=== PATIENT | male | born 1950 | race Caucasian/White ===

== ENCOUNTER 2016-12-22 10:18 | Observation (INO) | payer OTHER ==
--- NOTE | 2016-12-21 18:25 | GHP ---
[f rep st] PREOP HISTORY AND PHYSICAL ADMISSION DIAGNOSIS: Urinary bladder outlet obstruction with nocturia and incomplete emptying. HISTORY: He has had a previous photovaporization of the prostate in [place] in 2010. He presented to the office with an IPSS score of 19 and a bother score of 3. Postvoid residual of 347. He also had hematuria in the past and evaluation revealed no suggestion of malignancy. He had a CAT scan that showed some small sclerotic lesions of his skeleton. He has had a normal PSA in the past. He has also had radiation, radiated some 30 years ago. He has had a history of diabetes. On cystoscopy he has had regrowth of tissue causing a ball valve effect causing his urinary obstruction. He has a large capacity bladder with high detrusor voiding pressures and possible obstruction. He had a truss that shows 32 cc of prostate and anterior BPH noted. REASON FOR ADMISSION: At the present time, he is admitted for transurethral resection of the prostate. PAST MEDICAL HISTORY: He has had BPH, diabetes, heart disease and testicular atrophy. SURGICAL HISTORY: Hip, knee and spleen. MEDICATIONS: Finasteride, Fluad, gabapentin, Lantus, levothyroxine, metformin, pantoprazole, rosuvastatin, simvastatin. ALLERGIES: No known drug allergies. FAMILY HISTORY: Positive for diabetes. SOCIAL HISTORY: Mild alcohol consumption. Nonsmoker. REVIEW OF SYSTEMS: Negative cardiac, respiratory, GI. Endocrine is positive for diabetes. PHYSICAL EXAM: VITAL SIGNS: Stable. CHEST: Clear. HEART: Regular rate and rhythm. ABDOMEN: Normal, no organomegaly, rebound or guarding. EXTREMITIES: Lower extremities are normal. RECTAL: Exam on prior assessments have been compatible with BPH. : At the present time, he has small testes related to radiation and borderline low testosterone. He is considering androgen replacement therapy in the future. He has also had bladder outlet obstruction. He is presently admitted for a TURP. PLAN: The indication, complications, options were discussed. He is admitted for the above procedure. Copy requested to: Dr. Braydon Arriaga #: [id number]
[~2016-12-22 10:18] MED LIST: D5W LR 1,000 ML IV ONE; LIDOCAINE 2% JELLY 20 ML (UROJECT) ONE; ceFAZolin 2 GM/DEXTROSE 100 ML IV ONE
[2016-12-22] MEDS ORDERED: LIDOCAINE 1% 2 ML INJ ID PRN (10:44)
[2016-12-22] MEDS ORDERED: LR 1,000 ML IV ONE (10:44)
[2016-12-22] MEDS ORDERED: CEFAZOLIN 2 GM/DEXTROSE/100 ML BAG IV ONE (10:59)
--- NOTE | 2016-12-22 12:04 | PDHPUP ---
History & Physical Update H&P update statement: This history and physical update is based on an assessment of the patient which was completed after admission or registration (within 24 hours), but prior to the surgery/procedure. H&P update: H&P reviewed & patient examined, no change in patient's condition since H&P completed
[2016-12-22] MEDS ORDERED: ceFAZolin 2 GM/DEXTROSE 100 ML IV ONE (12:07)
[2016-12-22] MEDS ORDERED: LIDOCAINE 2% JELLY 20 ML (UROJECT) ONE (12:13)
--- NOTE | 2016-12-22 12:15 | PDANEPAE ---
ANE History of Present Illness BLPH, urinary obstruction ANE Past Medical History - Cardiovascular History Hx Hypertension: No Hx Arrhythmias: No Hx Chest Pain: No Hx Coronary Artery / Peripheral Vascular Disease: No Hx CHF / Valvular Disease: No Hx Palpitations: No - Pulmonary History Hx COPD: No Hx Asthma/Reactive Airway Disease: No Hx Recent Upper Respiratory Infection: No Hx Oxygen in Use at Home: No - Neurologic History Hx Cerebrovascular Accident: No Hx Seizures: No Hx Dementia: No - Endocrine History Hx Diabetes: Yes - Renal History Hx Renal Disorders: No - Liver History Hx Hepatic Disorders: No - Neurological & Psychiatric Hx Hx Neurological and Psychiatric Disorders: No - Cancer History Hx Cancer: Yes - Congenital Disorder History Hx Congenital Disorders: No - GI History Hx Gastrointestinal Disorders: Yes - Chronic Pain History Chronic Pain: Yes ANE Review of Systems - Exercise capacity METS (RN): 4 METS - Systems Cardiac: Reports: other (Able to do 4 METs) ANE Patient History - Allergies Allergies/Adverse Reactions: No Known Allergies Allergy (Verified 04/16/16 15:56) - Home Medications Home Medications: Levothyroxine [Synthroid 125 mcg (*)] 125 mcg PO DAILY06 02/23/15 [Last Taken ] Repaglinide [Prandin] 1 mg PO BID 02/23/15 [Last Taken 12/21/16] Rosuvastatin Calcium [Crestor 20mg (*)] 10 mg PO DAILY@1800 02/23/15 [Last Taken 12/21/16] metFORMIN HCL [Glucophage 500 mg (*)] 1,000 mg PO BIDMEAL 02/23/15 [Last Taken 12/21/16] Insulin Glargine [Lantus 100 UNITS/ML (*)] 15 units SC HS 08/18/15 [Last Taken 12/20/16] Aspirin EC [Aspirin EC 81 mg (*)] 81 mg PO DAILY 04/16/16 [Last Taken 12/14/16] Pantoprazole Sodium [Protonix 40mg (*)] 40 mg PO DAILY 04/16/16 [Last Taken ] - NPO status NPO Since - Liquids (Date): 12/21/16 NPO Since - Liquids (Time): 23:00 NPO Since - Solids (Date): 12/21/16 NPO Since - Solids (Time): 21:00 - Smoking Hx Smoking Status: Never smoked - Family Anes Hx Family Hx Anesthesia Complications: none ANE Labs/Vital Signs - Vital Signs Blood Pressure: 156/84 Heart Rate: 74 Respiratory Rate: 16 O2 Sat (%): 98 Height: 195.58 cm Weight: 90.718 kg
[2016-12-22] MEDS ORDERED: PROPOFOL/EMULSION 500 MG/50 ML BOTTLE IV ONE (12:22)
[2016-12-22] MEDS ORDERED: fentaNYL 100 MCG/2 ML INJ ONE (12:22)
[2016-12-22] MEDS ORDERED: DEXAMETHASONE 4 MG/ML VIAL IVP PRN (13:13)
[2016-12-22] MEDS ORDERED: METOCLOPRAMIDE 10 MG/2 ML VIAL IVP PRN (13:13)
[2016-12-22] MEDS ORDERED: MEPERIDINE 25 MG/ML SYR IVP PRN (13:13)
[2016-12-22] MEDS ORDERED: LABETALOL HCL 5 MG/ML 20 ML MDV IVP PRN (13:13)
[2016-12-22] MEDS ORDERED: fentaNYL 100 MCG/2 ML INJ IVP PRN (13:13)
[2016-12-22] MEDS ORDERED: HYDROCODONE/APAP 5/325 TAB PO PRN (13:13)
[2016-12-22] MEDS ORDERED: ENALAPRILAT DIHYDRATE 1.25 MG/ML VIAL IVP PRN (13:13)
[2016-12-22] MEDS ORDERED: ONDANSETRON 4 MG/2 ML VIAL IVP PRN (13:13)
[2016-12-22] MEDS ORDERED: PROMETHAZINE HCL 25 MG/ML INJ IVP PRN (13:13)
[2016-12-22] MEDS ORDERED: LR 500 ML IV PRN (13:13)
[2016-12-22] MEDS ORDERED: NALOXONE HCL 0.4 MG/ML INJ IVP PRN (13:13)
[2016-12-22] MEDS ORDERED: LIDOCAINE 2% 5 ML SDV ONE (13:47)
[2016-12-22 14:36] VITALS: RESP 16
--- NOTE | 2016-12-22 15:48 | GOP ---
[f rep st] OPERATIVE REPORT DATE OF OPERATION: 12/22/2016 SURGEON: Jeronimo Savage MD ANESTHESIA: Narinder Sifuentes MD, provided general anesthesia. PREOPERATIVE DIAGNOSIS: BPH with urinary obstruction. POSTOPERATIVE DIAGNOSIS: BPH with urinary obstruction. PROCEDURE PERFORMED: Transurethral resection of the prostate. FINDINGS: SPECIMENS: Sent to Pathology. The bladder after being Elliked, free of all chips and clots, visualized. No residual chips or clot s. Ureteral orifices normal and preserved. External sphincter approximated at the midline symmetri shannon. Verumontanum preserved. A 22 three-way catheter passed over a Mandarin guide. 60 cc balloo n inflated, traction placed, and irrigated clear. He will be admitted for postoperative care. DESCRIPTION OF PROCEDURE: Underwent general anesthesia. After appropriate prep and drape in normal sterile fashion in dorsal lithotomy position, a time-out noted. Urethra was normal. Prostate obst ructing bladder had +3 to 4 trabeculation, no tumors or stones. The TUR was begun, taking down the intravesical lobe of the prostate, the right lateral lobe and right portion of the posterior lobe. Hemostasis provided with cauterization. Left lateral lobe and left portion of the posterior lobe we re resected. At the end of the procedure, a button was used to provide hemostasis. /[id number]/MODL
--- NOTE | 2016-12-22 16:12 | POSTANESTH ---
Post Anesthetic Evaluation Cardiovascular Status: Normal, Stable Respiratory Status: Normal, Stable, Similar to Pre-op Cond. Level of Consciousness/Mental Status: Can Participate in Eval, Alert and Oriented Pain Control: Adequate, Prn Tx Ordered Nausea/Vomiting Control: Adequate, Prn Tx Ordered Complications Possibly Related to Anesthesia: None Noted
[2016-12-22] MEDS: metFORMIN HCL 500 MG TAB PO SCH (17:42)
[2016-12-22] MEDS: REPAGLINIDE 1 MG TAB PO SCH (17:42)
[2016-12-22] MEDS ORDERED: ROSUVASTATIN CALCIUM 20 MG TAB PO SCH (18:00)
[2016-12-22] MEDS ORDERED: INSULIN GLARGINE 100 UNITS/ML SYRINGE SC SCH (21:00)
[2016-12-23] MEDS ORDERED: LEVOTHYROXINE 125 MCG TAB PO SCH (06:00)
[2016-12-23] MEDS ORDERED: PANTOPRAZOLE SODIUM 40 MG TAB PO SCH (09:00)
[2016-12-23] MEDS ORDERED: ASPIRIN EC 81 MG TAB PO SCH (09:00)
[2016-12-23] MEDS: REPAGLINIDE 1 MG TAB PO SCH (09:01)
[2016-12-23] MEDS: metFORMIN HCL 500 MG TAB PO SCH (09:01)
[2016-12-23 11:57] VITALS: BP 114/56; PULSE 82; TEMP 98.3; O2SAT 95
== END 2016-12-23 13:28 | disposition home or self-care (01) ==
LOC: INTOOBSV 10:18 → F1N 10:18 → PREOBSVTOIN 10:39 → F1N 15:11
PROVIDERS: ADMIT Specialist; ATTEND Specialist
PROC: 0VB08ZZ Excision of Prostate, Via Natural or Artificial Opening Endoscopic (ICD-10-PCS; principal; 2016-12-22 11:30)
DX: N40.1 Benign prostatic hyperplasia with lower urinary tract symptoms (principal); R33.9 Retention of urine, unspecified; E11.9 Type 2 diabetes mellitus without complications; I51.9 Heart disease, unspecified
CPT/HCPCS: 52601; G0378; J0690; J1815; J2704; J3010

== ENCOUNTER 2017-01-12 01:29 | Emergency (ER) | payer OTHER ==
[2017-01-12 01:36] VITALS: TEMP 98.2
--- NOTE | 2017-01-12 01:42 | EDPHY ---
H & P Stated Complaint: wale blood in urine tonight + retention, 3 wks s/p prostate surgery HPI/ROS: HPI CHIEF COMPLAINT: Hematuria, urinary tension, recent prostate surgery HISTORY OF PRESENT ILLNESS: This patient very pleasant 66-year-old male, presents emergency room stating that he had a hard time using the bathroom earlier this evening. Thought he had urinary retention. Was able to pass he thinks a blood clot. And then urinated wale blood. Patient presents emergency room yesterday for urine sample was only able to get minimum gross hematuria out. He still feels like he can't pee more. He denies back pain or vomiting or abdominal pain. Past Medical History: Urinary retention Past Surgical History: TURP Social History: Denies daily use of drugs alcohol tobacco products. Family History: Noncontributory ROS REVIEW OF SYSTEMS: A comprehensive 10 point review of systems is otherwise negative aside from elements mentioned in the history of present illness. Exam Constitutional appears well nontoxic, triage nursing summary reviewed, vital signs reviewed, awake/alert. Eyes normal conjunctivae and sclera, EOMI, PERRLA. HENT normal inspection, atraumatic, moist mucus membranes, no epistaxis, neck supple/ no meningismus, no raccoon eyes. Respiratory clear to auscultation bilaterally, normal breath sounds, no respiratory distress, no wheezing. Cardiovascular rate normal, regular rhythm, no murmur, no edema, distal pulses normal. Gastrointestinal soft, non-tender, no rebound, no guarding, normal bowel sounds, no distension, no pulsatile mass. Genitourinary no CVA tenderness. Musculoskeletal no midline vertebral tenderness, full range of motion, no calf swelling, no tenderness of extremities, no meningismus, good pulses, neurovascularly intact. Skin pink, warm, & dry, no rash, skin atraumatic. Neurologic awake, alert and oriented x 3, AAOx3, moves all 4 extremities equally, motor intact, sensory intact, CN II-XII intact, normal cerebellar, normal vision, normal speech. Psychiatric normal mood/affect. Heme/Lymph/Immune no lymphadenopathy. Differential Diagnosis: Includes but is not limited to in a particular order, urinary obstruction from hematuria, blood clot in bladder, UTI, prostate bleeding Medical Decision Making: Plan for this patient check basic blood work including kidney function, will place Ogden catheter in flush the bladder. Will allow Ogden catheter stay in. He has a follow-up appoint with Dr. Savage on Monday. He understands notify them today that he has indwelling Ogden catheter in due to hematuria and obstruction. Re-evaluation: 0331AM: Ogden in place. Hematuria present. 500 cc around. Ogden has been flushed. Ogden draining appropriately. Will go home with Ogden to follow up with Urology. Understands return emergency room if there is any worsening symptoms questions or concerns includes obstruction of his Ogden. Pain, fever Source: Patient - Personal History Current Tetanus/Diphtheria Vaccine: Unsure Current Tetanus Diphtheria and Acellular Pertussis (TDAP): Unsure - Medical/Surgical History Hx Asthma: No Hx Chronic Respiratory Disease: No Hx Diabetes: Yes Hx Cardiac Disease: Yes Hx Renal Disease: No Hx Cirrhosis: No Hx Alcoholism: No Hx HIV/AIDS: No Hx Splenectomy or Spleen Trauma: No Other PMH: Bilateral TKAs, Bilateral THAs, IDDM, CAD, BPH - Social History Smoking Status: Never smoked Constitutional: Initial Vital Signs Temperature (C) 36.8 C 01/12/17 01:33 Heart Rate 93 01/12/17 01:33 Respiratory Rate 16 01/12/17 01:33 Blood Pressure 136/70 H 01/12/17 01:33 O2 Sat (%) 95 01/12/17 01:33 O2 Delivery Mode Room Air Allergies/Adverse Reactions: No Known Allergies Allergy (Verified 01/12/17 01:32) Home Medications: Medication Instructions Recorded Levothyroxine [Synthroid 125 mcg 125 mcg PO DAILY06 02/23/15 (*)] Repaglinide [Prandin] 1 mg PO BID 02/23/15 Rosuvastatin Calcium [Crestor 20mg 10 mg PO DAILY@1800 02/23/15 (*)] metFORMIN HCL [Glucophage 500 mg 1,000 mg PO BIDMEAL 02/23/15 (*)] Insulin Glargine [Lantus 100 15 units SC HS 08/18/15 UNITS/ML (*)] Aspirin EC [Aspirin EC 81 mg (*)] 81 mg PO DAILY 04/16/16 Pantoprazole Sodium [Protonix 40mg 40 mg PO DAILY 04/16/16 (*)] Medical Decision Making - Data Points Laboratory Results: Laboratory Results 01/12/17 02:20 01/12/17 02:20 01/12/17 01/12/17 01/12/17 02:20 02:20 02:10 WBC 10.60 10^3/uL H 10^3/uL (3.80-9.50) RBC 3.89 10^6/uL L 10^6/uL (4.40-6.38) Hgb 11.3 g/dL L g/dL (13.7-17.5) Hct 34.6 % L % (40.0-51.0) MCV 88.9 fL fL (81.5-99.8) MCH 29.0 pg pg (27.9-34.1) MCHC 32.7 g/dL g/dL (32.4-36.7) RDW 17.6 % H % (11.5-15.2) Plt Count 323 10^3/uL 10^3/uL (150-400) MPV 11.3 fL fL (8.7-11.7) Neut % (Auto) 48.9 % % (39.3-74.2) Lymph % (Auto) 37.2 % % (15.0-45.0) [place] % (Auto) 10.0 % % (4.5-13.0) Eos % (Auto) 3.0 % % (0.6-7.6) Baso % (Auto) 0.7 % % (0.3-1.7) Nucleat RBC Rel Count 0.0 % % (0.0-0.2) Absolute Neuts (auto) 5.19 10^3/uL 10^3/uL (1.70-6.50) Absolute Lymphs (auto) 3.94 10^3/uL H 10^3/uL (1.00-3.00) Absolute Monos (auto) 1.06 10^3/uL H 10^3/uL (0.30-0.80) Absolute Eos (auto) 0.32 10^3/uL 10^3/uL (0.03-0.40) Absolute Basos (auto) 0.07 10^3/uL 10^3/uL (0.02-0.10) Absolute Nucleated RBC 0.00 10^3/uL 10^3/uL (0-0.01) Immature Gran % 0.2 % % (0.0-1.1) Immature Gran # 0.02 10^3/uL 10^3/uL (0.00-0.10) Sodium 141 mEq/L mEq/L (134-144) Potassium 4.9 mEq/L mEq/L (3.5-5.2) Chloride 107 mEq/L mEq/L (97-110) Carbon Dioxide 23 mEq/l mEq/l (22-31) Anion Gap 11 mEq/L mEq/L (8-16) BUN 24 mg/dL H mg/dL (7-23) Creatinine 1.3 mg/dL mg/dL (0.7-1.3) Estimated GFR 55 Glucose 119 mg/dL H mg/dL (70-100) Calcium 9.7 mg/dL mg/dL (8.5-10.4) Urine Color RED Urine Appearance MODERATELY TURBID Urine pH 7.0 (5.0-7.5) Ur Specific [place] 1.014 (1.002-1.030) Urine Protein 2+ H (NEGATIVE) Urine Ketones TRACE H (NEGATIVE) Urine Blood 2+ H (NEGATIVE) Urine Nitrate NEGATIVE (NEGATIVE) Urine Bilirubin NEGATIVE (NEGATIVE) Urine Urobilinogen NEGATIVE EU EU (0.2-1.0) Ur Leukocyte Esterase NEGATIVE (NEGATIVE) Urine RBC 50-182 /hpf H /hpf (0-3) Urine WBC 50-182 /hpf H /hpf (0-3) Ur Epithelial Cells NONE SEEN /lpf /lpf (NONE-1+) Urine Glucose 1+ H (NEGATIVE) Departure - Departure Disposition: Home, Routine, Self-Care Clinical Impression: Hematuria, Urinary obstruction Condition: Good Instructions: Urinary Retention in Men (ED), Hematuria (ED) Additional Instructions: 1. Make sure to drink lots of fluids. 2. Return emergency room if you have any worsening symptoms includes obstruction of your cath or problems urinating. 3. Please follow up with Dr. Savage. Referrals: NONE *PRIMARY CARE P,. [Primary Care Provider] - As per Instructions Jeronimo Savage MD [Medical Doctor] - As per Instructions
[2017-01-12 02:24] LABS: COLOR RED; LEUKOCYTE ESTERASE,URINE NEGATIVE (NEGATIVE); NITRITE,URINE NEGATIVE (NEGATIVE)
[2017-01-12 02:28] LABS: % IMMATURE GRANULYOCYTES 0.2 % (0.0-1.1); ABSOLUTE IMMATURE GRANULOCYTES 0.02 10^3/uL (0.00-0.10); ADD DIFF? NO; ADD MORPH? NO; ADD SCAN? NO; ATYPICAL LYMPHOCYTE FLAG 20 (0-99); FRAGMENT RBC FLAG 10 (0-99); HEMATOCRIT 34.6 % (40.0-51.0); HEMOGLOBIN 11.3 g/dL (13.7-17.5); LEFT SHIFT FLG 0 (0-99); LIPEMIA HEMOLYSIS FLAG 80 (0-99); MEAN CELL HEMOGLOBIN CONCENTR. 32.7 g/dL (32.4-36.7); MEAN CELL VOLUME 88.9 fL (81.5-99.8); MEAN PLATELET VOLUME 11.3 fL (8.7-11.7); PLATELET CLUMPS FLAG 0 (0-99); PLATELET COUNT 323 10^3/uL (150-400); RED BLOOD CELL COUNT 3.89 10^6/uL (4.40-6.38); RED CELL DISTRIBUTION WIDTH 17.6 % (11.5-15.2)
[2017-01-12 02:34] LABS: RBC,URINE 50-182 /hpf (0-3); WBC,URINE 50-182 /hpf (0-3)
[2017-01-12 02:45] LABS: ANION GAP 11 mEq/L (8-16); CALCIUM 9.7 mg/dL (8.5-10.4); CARBON DIOXIDE 23 mEq/l (22-31); CHLORIDE 107 mEq/L (97-110); CREATININE 1.3 mg/dL (0.7-1.3); GLOMERULAR FILTRATION RATE 55; GLUCOSE 119 mg/dL (70-100); POTASSIUM 4.9 mEq/L (3.5-5.2); SODIUM 141 mEq/L (134-144)
[2017-01-12 03:25] VITALS: BP 134/77; PULSE 68; RESP 18; O2SAT 96
== END 2017-01-12 03:24 | disposition home or self-care (01) ==
PROC: 0T9B70Z Drainage of Bladder with Drainage Device, Via Natural or Artificial Opening (ICD-10-PCS; principal; 2017-01-12)
DX: R31.9 Hematuria, unspecified (principal); N13.9 Obstructive and reflux uropathy, unspecified; E11.9 Type 2 diabetes mellitus without complications; I25.10 Atherosclerotic heart disease of native coronary artery without angina pectoris; Z79.4 Long term (current) use of insulin; Z79.82 Long term (current) use of aspirin; Z79.84 Long term (current) use of oral hypoglycemic drugs

== ENCOUNTER 2017-01-14 18:26 | Emergency (ER) | payer OTHER ==
[2017-01-14 18:32] VITALS: TEMP 97.9
--- NOTE | 2017-01-14 18:34 | EDPHY ---
H & P Stated Complaint: urinary cath placed 2 days ago for retention/catheter now not draining Time Seen by Provider: 01/14/17 18:34 - Personal History Current Tetanus/Diphtheria Vaccine: Unsure - Medical/Surgical History Hx Asthma: No Hx Chronic Respiratory Disease: No Hx Diabetes: Yes Hx Cardiac Disease: Yes Hx Renal Disease: No Hx Cirrhosis: No Hx Alcoholism: No Hx HIV/AIDS: No Hx Splenectomy or Spleen Trauma: No Other PMH: Bilateral TKAs, Bilateral THAs, IDDM, CAD, BPH - Social History Smoking Status: Never smoked Constitutional: Initial Vital Signs Temperature (C) 36.6 C 01/14/17 18:29 Heart Rate 91 01/14/17 18:29 Respiratory Rate 16 01/14/17 18:29 Blood Pressure 137/80 H 01/14/17 18:29 O2 Sat (%) 96 01/14/17 18:29 O2 Delivery Mode Room Air Allergies/Adverse Reactions: No Known Allergies Allergy (Verified 01/14/17 18:27) Home Medications: Medication Instructions Recorded Levothyroxine [Synthroid 125 mcg 125 mcg PO DAILY06 02/23/15 (*)] Repaglinide [Prandin] 1 mg PO BID 02/23/15 Rosuvastatin Calcium [Crestor 20mg 10 mg PO DAILY@1800 02/23/15 (*)] metFORMIN HCL [Glucophage 500 mg 1,000 mg PO BIDMEAL 02/23/15 (*)] Insulin Glargine [Lantus 100 15 units SC HS 08/18/15 UNITS/ML (*)] Aspirin EC [Aspirin EC 81 mg (*)] 81 mg PO DAILY 04/16/16 Pantoprazole Sodium [Protonix 40mg 40 mg PO DAILY 04/16/16 (*)] Medical Decision Making ED Course/Re-evaluation: CHIEF COMPLAINT: Blocked catheter HISTORY OF PRESENT ILLNESS: This patient is a 66 year old male with history of recent TURP [address] Savage complaining of possible blocked Ogden catheter. Two days ago, 01/12/17, he was seen in the emergency department for urinary retention and hematuria. He had a Ogden catheter placed at that time. Today, he states he is concerned the catheter has become blocked, and he is experiencing leakage around the catheter. No fever, chills, vomiting, chest pain, shortness of breath, or other associated symptoms. REVIEW OF SYSTEMS: A 10 point review of systems was performed and is negative with the exception of the elements mentioned in the history of present illness. PHYSICAL EXAM: HR, BP, O2 Sat, RR. Temp noted General Appearance: Alert, well hydrated, appropriate, and non-toxic appearing. Head: Atraumatic without scalp tenderness or obvious injury Eyes: Pupils equal, round, reactive to light and accommodation, EOMI, no trauma , no injection. Ears: Clear bilaterally, no perforation, normal landmarks Nose: Atraumatic, no rhinorrhea, clear. Throat: There is no erythema or exudates, no lesions, normal tonsils, mucus membranes moist. Neck: Supple, Respiratory: No retractions, no distress, no wheezes, and no accessory muscle use. Lungs are clear to auscultation bilaterally. Cardiovascular: Regular rate and rhythm. Good capillary refill all extremities. Gastrointestinal: Abdomen is soft, nontender, non-distended, no masses, no rebound, no guarding, no peritoneal signs. Musculoskeletal: Normal active ROM of all extremities, atraumatic. Neurological: Alert, appropriate, and interactive. Nonfocal neuro exam. Skin: No rashes, good turgor, no nodules on palpation. Past medical history: BPH, coronary artery disease, type I diabetes mellitus, bilateral total hip and knee arthroplasties Past surgical history: TURP Family history: Noncontributory Social history: at bedside. DIFFERENTIAL DIAGNOSIS: The differential diagnosis for the patient's urinary retention included but was not limited to medication side effect, neurologic causes, outflow obstruction including prostatic hypertrophy, and infection. MEDICAL DECISION MAKING: This patient is a 66 year old male 3 weeks postop from TURP complaining of urinary retention secondary to Ogden catheter placement. Upon removal of catheter, the patient was able to pass clots and urinate. Plan to discharge home in good condition. Patient will follow up with Dr. Savage as scheduled for continued postoperative management. Questions answered. The patient is comfortable with this plan. Departure - Departure Disposition: Home, Routine, Self-Care Clinical Impression: Urinary retention Condition: Good Instructions: Urinary Retention in Men (ED) Additional Instructions: 1. Follow up with Dr. Savage as scheduled for continued postoperative care. 2. Return to the Emergency Department if you develop urinary retention again or for other concerns or worsening of condition. Referrals: NONE *PRIMARY CARE P,. [Primary Care Provider] - As per Instructions Jeronimo Savage MD [Medical Doctor] - As per Instructions Report Scribed for: [place] Report Scribed by: Juliann Vazquez Date of Report: 01/14/17 Time of Report: 19:51
[2017-01-14 20:12] VITALS: BP 122/61; PULSE 77; RESP 17; O2SAT 97
== END 2017-01-14 20:12 | disposition home or self-care (01) ==
PROC: 0T9B7ZZ Drainage of Bladder, Via Natural or Artificial Opening (ICD-10-PCS; principal; 2017-01-14)
DX: R33.9 Retention of urine, unspecified (principal); E10.9 Type 1 diabetes mellitus without complications; I25.10 Atherosclerotic heart disease of native coronary artery without angina pectoris; Y73.2 Prosthetic and other implants, materials and accessory gastroenterology and urology devices associated with adverse incidents

== ENCOUNTER → 2017-02-13 | Outpatient (CLI) | payer OTHER | LOC: FIMAGING 08:49 | PROVIDERS: ATTEND Internal Medicine | DX: R06.02 Shortness of breath (principal) ==